=== PATIENT | female | born 1970 | race Caucasian/White ===

== ENCOUNTER 2022-06-15 09:00 | Emergency (ER) | payer MEDICAID ==
--- NOTE | 2022-06-15 09:15 | NUR ---
CALLED TO TRIAGE,NO ANSWER
--- NOTE | 2022-06-15 09:26 | NUR ---
CALLED TO TRIAGE,PATIENT LEFT PER ADMITTING
[2022-06-16] MEDS ORDERED: DOXY-326 PO (18:42)
[2022-06-16] MEDS ORDERED: FLUT16SP16 BNOSTRILS (18:42)
[2022-06-16] MEDS ORDERED: PSEU120T83 PO (18:42)
== END 2022-06-15 09:29 | disposition left against medical advice (07) ==
LOC: EDBD → ER 09:06
DX: Z53.21 Procedure and treatment not carried out due to patient leaving prior to being seen by health care provider (principal)

== ENCOUNTER 2022-06-16 16:58 | Emergency (ER) | payer MEDICAID ==
[~2022-06-16] VITALS: Ht 170.2 cm; Wt 57.6 kg
[2022-06-16 17:30] VITALS: BP 148/91
[2022-06-16] MEDS ORDERED: GUAIFENESIN/D-METHORPHAN HB 5 ML UDC ONE (17:51)
[2022-06-16] MEDS ORDERED: GUAIFENESIN/D-METHORPHAN HB 5 ML UDC PO ONE (18:00)
[2022-06-16] MEDS ORDERED: DOXY-326 PO (18:42)
[2022-06-16] MEDS ORDERED: PSEU120T83 PO (18:42)
[2022-06-16] MEDS ORDERED: FLUT16SP16 BNOSTRILS (18:42)
== END 2022-06-16 19:10 | disposition home or self-care (01) ==
LOC: ER 17:02
DX: J32.9 Chronic sinusitis, unspecified (principal); Z60.2 Problems related to living alone; Z79.899 Other long term (current) drug therapy
CPT/HCPCS: 71045-TC